=== PATIENT | female | born 1990 | race Two or more races ===

== ENCOUNTER 2017-07-13 06:54 | Emergency (ER) | payer MEDICAID ==
[~2017-07-13] VITALS: Ht 160 cm; Wt 78.0 kg
[~2017-07-13 06:54] MED LIST: NKM; RANITIDINE HCL150 MG PO; ZANTAC150 MG ORAL
[2017-07-13] MEDS ORDERED: IBUPROFEN600 MG ORAL (07:39)
--- NOTE | 2017-07-13 07:40 | Emergency Room Report ---
History of Present Illness General Chief Complaint: Sore Throat Present Illness HPI [id number] female with hypertension presenting with sore throat for 2 days. Patient reports sore throat worse with eating solid foods. Patient has still been able to eat solids and liquids. Patient denies any fever chills change in voice shortness of breath. Patient reports slight runny nose. Sick contacts include 2 kids with sore throat. Allergies: Coded Allergies: No Known Allergies (Unverified , 09/18/12) Patient History Past Medical History: HTN Past Surgical History: none Pertinent Family History: none Last Menstrual Period: 06/10/17 Now: No Nursing Documentation-PMH Hx Cardiac Problems: No Hx Hypertension: Yes Hx Asthma: No Hx Diabetes: No Hx Gastrointestinal Problems: Yes - GASTRITIS Review of Systems ENT: Reports: throat pain All Other Systems: negative except mentioned in HPI Physical Exam Vital Signs Date Time Temp Pulse Resp B/P Pulse Ox O2 Delivery O2 Flow Rate FiO2 07/13/17 07:12 97.9 83 145/85 95 Room Air Sp02 EP Interpretation: reviewed, normal General Appearance: normal inspection, well appearing, no apparent distress, alert, GCS 15, non-toxic Head: normocephalic, atraumatic Eyes: bilateral eye EOMI, bilateral eye PERRL, bilateral eye normal inspection ENT: moist mucus membranes, other - Bilateral mild tonsillar erythema. No exudates. No uvula enlargement or deviation. No signs of [employer]. Neck: normal inspection, full range of motion, supple, no bony tend Respiratory: normal inspection, lungs clear, normal breath sounds, no respiratory distress, no retraction, no wheezing, speaking full sentences, chest symmetrical Cardiovascular #1: normal inspection, regular rate, rhythm, normal capillary refill Gastrointestinal: normal inspection, non tender, soft, non-distended, no guarding Musculoskeletal: normal inspection, back normal, normal range of motion, non- tender Neurologic: normal inspection, alert, oriented x3, responsive, motor strength/ tone normal, sensory intact, normal gait, speech normal Psychiatric: normal inspection, judgement/insight normal, memory normal Skin: normal inspection, normal color, no rash, warm/dry, well hydrated, normal turgor Medical Decision Making Diagnostic Impression: Primary Impression: Viral pharyngitis ER Course Yo M F with sore throat for * days DDX: viral vs. infectious mononucleosis vs. bacterial pharyngitis vs. allergies Other serious causes such as [employer] / RPA / deep space neck infection history/physical most consistent with viral pharyngitis Plan: Motrin, decadron, supportive care. Abx not indicated at this time ER course: Patient remains stable in ED. Pt states improvement of pain with motrin. *Decadron given to patient. Disposition: Patient will be discharged to home. Patient will follow up with primary care doctor within 5 days. Strict return precautions discussed with patient such as worsening throat pain/swelling, dysphagia, high fever or chills, shortness of breath, abdominal pain, which may indicate severe illness. Patient verbalized understanding and agreed with plan. 27 F with sore throat for 2 days DDX: viral vs. infectious mononucleosis vs. bacterial pharyngitis vs. allergies Other serious causes such as [employer] / RPA / deep space neck infection history/physical most consistent with viral pharyngitis Plan: Motrin, Abx not indicated at this time ER course: Patient remains stable in ED. Pt states improvement of pain with motrin. Disposition: Patient will be discharged to home. Patient will follow up with primary care doctor within 5 days. Strict return precautions discussed with patient such as worsening throat pain/swelling, dysphagia, high fever or chills, shortness of breath, abdominal pain, which may indicate severe illness. Patient verbalized understanding and agreed with plan. Last Vital Signs Date Time Temp Pulse Resp B/P Pulse Ox O2 Delivery O2 Flow Rate FiO2 07/13/17 07:12 97.9 83 145/85 95 Room Air Disposition: HOME, SELF-CARE Condition: Improved Scripts Ibuprofen* (MOTRIN*) 600 Mg Tablet 600 MG ORAL Q8H Y for For Pain, #30 TAB 0 Refills Prov: Tomás Ramirez M.D. 07/13/17 Referrals: [facility],REFERRING (PCP) Tomás Ramirez M.D. Jul 13, 2017 07:40
[2017-07-13 07:51] VITALS: BP 145/85
[2017-07-13 08:02] VITALS: BP 141/78
== END 2017-07-13 08:04 | disposition home or self-care (01) ==
LOC: EMR 07:35
DX: J02.9 Acute pharyngitis, unspecified (principal); I10 Essential (primary) hypertension
CPT/HCPCS: 99283

== ENCOUNTER 2017-11-18 09:27 | Inpatient (IN) | payer MEDICAID ==
[2017-11-18] VITALS (7 sets, daily range): BP systolic 110–134; BP diastolic 66–85
[~2017-11-18] VITALS: Ht 162.6 cm; Wt 81.6 kg
[~2017-11-18 09:27] MED LIST changes: +IBUPROFEN600 MG ORAL
[2017-11-18 10:17] LABS: MEAN CORPUSCULAR HEMOGLOBIN 27.8 PG (27.0-31.0); MEAN CORPUSCULAR VOLUME 87 FL (80-99); MEAN PLATELET VOLUME 6.3 FL (6.5-10.1); PLATELET COUNT 210 K/UL (150-450); RED BLOOD COUNT 5.36 M/UL (4.20-5.40); RED CELL DISTRIBUTION WIDTH 11.9 % (11.6-14.8); WHITE BLOOD COUNT 9.8 K/UL (4.8-10.8)
[2017-11-18 10:23] LABS: CALCIUM 7.9 MG/DL (8.5-10.1)
[2017-11-18 10:27] LABS: APPEARANCE,URINE CLEAR; KETONES,URINE NEGATIVE (NEGATIVE); LEUKOCYTE ESTERASE ,URINE NEGATIVE (NEGATIVE); NITRITE,URINE NEGATIVE (NEGATIVE); PH,URINE 5 (4.5-8.0); PROTEIN,URINE NEGATIVE (NEGATIVE); UROBILINOGEN,URINE NORMAL MG/DL (0.0-1.0)
[2017-11-18 10:31] LABS: ALANINE AMINOTRANSFERASE 23 U/L (12-78); ALBUMIN/GLOBULIN RATIO 0.9 (1.0-2.7); ANION GAP 9 mmol/L (5-15); ASPARTATE AMINO TRANSFERASE 15 U/L (15-37); CARBON DIOXIDE 25 MMOL/L (21-32); CHLORIDE 104 MMOL/L (98-107); CREATININE 0.8 MG/DL (0.55-1.30); GLOMERULAR FILTRATION RATE > 60 mL/min (>60); LIPASE 94 U/L (73-393); POTASSIUM 3.7 MMOL/L (3.5-5.1); SODIUM 138 MMOL/L (136-145); TOTAL PROTEIN 8.5 G/DL (6.4-8.2)
[2017-11-18 10:38] LABS: BACTERIA,URINE FEW /HPF; SQUAMOUS EPITHELIAL CELL,UR FEW /LPF (NONE/OCC); WBC,URINE 0-2 /HPF (0 - 2)
--- NOTE | 2017-11-18 10:38 | Emergency Room Report ---
History of Present Illness General Chief Complaint: Abdominal Pain Source: Patient Present Illness HPI 27-year-old female with no sig pmhx p/w nausea vomiting and diarrhea for 12 hours. Pt reports n/v, 10 episodes of nbnb vomiting, 10 episodes of watery non bloody diarrhea Patient states pain started after vomiting, localized to epigastric, non radiating, burning in nature, intermittent. No relieving or exacerbating factors. + Subjective chills No hx of abdominal surgeries. No hx of endoscopies/colonoscopies. No recent antibiotic use No dysuria or hematuria Allergies: Coded Allergies: No Known Allergies (Unverified , 09/18/12) Patient History Past Medical History: see triage record Past Surgical History: none Pertinent Family History: none Last Menstrual Period: 10/24/17 Now: No Reviewed Nursing Documentation: PMH: Agreed, PSxH: Agreed Nursing Documentation-PMH Hx Cardiac Problems: No Hx Hypertension: Yes Hx Asthma: No Hx Diabetes: No Hx Gastrointestinal Problems: Yes - GASTRITIS Review of Systems All Other Systems: negative except mentioned in HPI Physical Exam Vital Signs Date Time Temp Pulse Resp B/P (MAP) Pulse Ox O2 Delivery O2 Flow Rate FiO2 11/18/17 09:34 100.2 148 18 134/85 97 Room Air Sp02 EP Interpretation: reviewed, normal General Appearance: alert, GCS 15, non-toxic, mild distress Head: normocephalic, atraumatic Eyes: bilateral eye normal inspection, bilateral eye PERRL, bilateral eye EOMI ENT: normal ENT inspection, normal pharynx, normal voice, moist mucus membranes Neck: normal inspection, full range of motion, supple Respiratory: normal inspection, lungs clear, normal breath sounds, no respiratory distress, no retraction, no wheezing, speaking full sentences, chest symmetrical Cardiovascular #1: normal inspection, regular rate, rhythm, no edema, normal capillary refill Cardiovascular #2: 2+ radial (R), 2+ radial (L) Gastrointestinal: other - Epigastric tenderness, no guarding or rebound Musculoskeletal: normal inspection, back normal, normal range of motion, non- tender Neurologic: normal inspection, alert, oriented x3, responsive, motor strength/ tone normal, sensory intact, normal gait, speech normal Psychiatric: normal inspection, judgement/insight normal, memory normal Skin: normal inspection, normal color, no rash, warm/dry, well hydrated, normal turgor Medical Decision Making Diagnostic Impression: Primary Impression: Nausea vomiting and diarrhea Additional Impression: Tachycardia ER Course 27-year-old female with nausea vomiting diarrhea abdominal pain Differential Diagnosis: Gastritis, gastroenteritis, cholecystitis, appendicitis, UTI/pyelo At this time abdomen is soft nontender, not likely to have acute intra- abdominal surgical pathology, will hold CT for now. Plan: Basic labs, ua, ekg Pepcid, maalox, pain control, IVF ER course: Pt initially tachycardic, found to be febrile, fluids and Tylenol given Pain improved. however pt continues to be very tachycardic >120s total 3L given still febrile, motrin given ativan given for anxiety slight low TSH will admit to hospital Disposition: Patient is to be admitted to telemetry D/W hospitalist Dr Mckeon who is covering for Dr Owens Please note that this Emergency Department Report was dictated using [employer] technology software, occasionally this can lead to erroneous entry secondary to interpretation by the dictation equipment Rhythm Strip EP Interpretation: Yes Rate: 100 Rhythm: NSR, no PVCs, no ectopy Laboratory Tests Test 11/18/17 09:56 11/18/17 10:00 11/18/17 14:00 Urine Color Yellow Urine Appearance Clear Urine pH 5 (4.5-8.0) Urine Specific [place] 1.015 (1.005-1.035) Urine Protein Negative (NEGATIVE) Urine Glucose (UA) Negative (NEGATIVE) Urine Ketones Negative (NEGATIVE) Urine Occult Blood 3+ (NEGATIVE) H Urine Nitrite Negative (NEGATIVE) Urine Bilirubin Negative (NEGATIVE) Urine Urobilinogen Normal MG/DL (0.0-1.0) Urine Leukocyte Esterase Negative (NEGATIVE) Urine RBC 2-4 /HPF (0 - 2) H Urine WBC 0-2 /HPF (0 - 2) Urine Squamous Epithelial Cells Few /LPF (NONE/OCC) Urine Bacteria Few /HPF (NONE) Urine HCG, Qualitative Negative White Blood Count 9.8 K/UL (4.8-10.8) Red Blood Count 5.36 M/UL (4.20-5.40) Hemoglobin 14.9 G/DL (12.0-16.0) Hematocrit 46.7 % (37.0-47.0) Mean Corpuscular Volume 87 FL (80-99) Mean Corpuscular Hemoglobin 27.8 PG (27.0-31.0) Mean Corpuscular Hemoglobin Concent 32.0 G/DL (32.0-36.0) Red Cell Distribution Width 11.9 % (11.6-14.8) Platelet Count 210 K/UL (150-450) Mean Platelet Volume 6.3 FL (6.5-10.1) L Neutrophils (%) (Auto) % (45.0-75.0) Lymphocytes (%) (Auto) % (20.0-45.0) Monocytes (%) (Auto) % (1.0-10.0) Eosinophils (%) (Auto) % (0.0-3.0) Basophils (%) (Auto) % (0.0-2.0) Differential Total Cells Counted 100 Neutrophils % (Manual) 92 % (45-75) H Lymphocytes % (Manual) 3 % (20-45) L Monocytes % (Manual) 4 % (1-10) Eosinophils % (Manual) 1 % (0-3) Basophils % (Manual) 0 % (0-2) Band Neutrophils 0 % (0-8) Platelet Estimate Adequate Platelet Morphology Normal Red Blood Cell Morphology Normal Sodium Level 138 MMOL/L (136-145) Potassium Level 3.7 MMOL/L (3.5-5.1) Chloride Level 104 MMOL/L (98-107) Carbon Dioxide Level 25 MMOL/L (21-32) Anion Gap 9 mmol/L (5-15) Blood Urea Nitrogen 8 mg/dL (7-18) Creatinine 0.8 MG/DL (0.55-1.30) Estimate Glomerular Filtration Rate > 60 mL/min (>60) Glucose Level 148 MG/DL (74-106) H Calcium Level 7.9 MG/DL (8.5-10.1) L Total Bilirubin 0.4 MG/DL (0.2-1.0) Aspartate Amino Transferase (AST) 15 U/L (15-37) Alanine Aminotransferase (ALT) 23 U/L (12-78) Alkaline Phosphatase 88 U/L (46-116) Total Protein 8.5 G/DL (6.4-8.2) H Albumin 4.0 G/DL (3.4-5.0) Globulin 4.5 g/dL Albumin/Globulin Ratio 0.9 (1.0-2.7) L Lipase 94 U/L (73-393) Thyroid Stimulating Hormone (TSH) 0.206 uiU/mL (0.358-3.740) Last Vital Signs Date Time Temp Pulse Resp B/P (MAP) Pulse Ox O2 Delivery O2 Flow Rate FiO2 11/18/17 10:15 101.8 11/18/17 09:34 148 18 134/85 97 Room Air Disposition: ADMITTED INPATIENT Condition: Serious Referrals: [facility],REFERRING (PCP) Tomás Ramirez M.D. Nov 18, 2017 10:38
[2017-11-18] MEDS ORDERED: Acetaminophen 500mg (ES) tab ORAL ONE (10:45)
[2017-11-18 10:46] LABS: BAND NEUTROPHILS % (MANUAL) 0 % (0-8); BASOPHILS % (MANUAL) 0 % (0-2); EOSINOPHILS % (MANUAL) 1 % (0-3); LYMPHOCYTES % (MANUAL) 3 % (20-45); NEUTROPHILS % (MANUAL) 92 % (45-75); PLATELET ESTIMATE ADEQUATE; PLATELET MORPHOLOGY NORMAL; TOTAL CELLS COUNTED 100
[2017-11-18] MEDS ORDERED: LORazepam Inj 2mg/ml 1ml IV ONE (14:45)
--- NOTE | 2017-11-18 17:27 | GI Initial Consult Note ---
History of Present Illness General Date patient seen: Nov 18, 2017 Time patient seen: 17:19 Reason for Hospitalization: Abdominal Pain Reason for Consultation: N/V Present Illness HPI 27-year-old female with no sig pmhx p/w nausea vomiting and diarrhea for 12 hours. Pt reports n/v, 10 episodes of nbnb vomiting, 10 episodes of watery non bloody diarrhea Patient states pain started after vomiting, localized to epigastric, non radiating, burning in nature, intermittent. No relieving or exacerbating factors. + Subjective chills GI consulted for N/V. HPI as noted above. Pt seen on floor, awake A&Ox4 NAD with no active s/sx of N/V/D. Last episode of emesis at 9am this morning, denies hematemesis or coffee grounds. Denies any recent travels. Denies any ETOH, tobacco, or drug use. Denies any changes in recent dietary changes. Epigastric tenderness. No leukocytosis. Low grade fever. No hx of abdominal surgeries. No hx of endoscopies/colonoscopies. No recent antibiotic use No dysuria or hematuria Home Meds Active Scripts Ibuprofen* (MOTRIN*) 600 Mg Tablet, 600 MG ORAL Q8H Y for For Pain, #30 TAB 0 Refills Prov:Tomás Ramirez M.D. 07/13/17 Ranitidine Hcl* (ZANTAC*) 150 Mg Tablet, 150 MG ORAL TWICE A DAY, #60 TAB Prov:DAHIANA OSL P.A. 06/23/13 Reported Medications No Known Medications* (NKM - No Known Medications*) ., 0 . 02/14/13 Med list reviewed/reconciled: Yes Allergies: Coded Allergies: No Known Allergies (Unverified , 09/18/12) Patient History History Provided By: Patient, Medical Record PMH Narrative Past Medical History: see triage record Past Surgical History: none Pertinent Family History: none Last Menstrual Period: 10/24/17 Now: No Reviewed Nursing Documentation: PMH: Agreed, PSxH: Agreed Nursing Documentation-PMH Hx Cardiac Problems: No Hx Hypertension: Yes Hx Asthma: No Hx Diabetes: No Hx Gastrointestinal Problems: Yes - GASTRITIS Social History: Denies: smoking, alcohol use, drug use, other Review of Systems All Other Systems: negative except mentioned in HPI Physical Exam Vital Signs Date Time Temp Pulse Resp B/P (MAP) Pulse Ox O2 Delivery O2 Flow Rate FiO2 11/18/17 09:34 100.2 148 18 134/85 97 Room Air Sp02 EP Interpretation: reviewed, normal Labs Laboratory Tests Test 11/18/17 09:56 11/18/17 10:00 11/18/17 14:00 Urine Color Yellow Urine Appearance Clear Urine pH 5 (4.5-8.0) Urine Specific [place] 1.015 (1.005-1.035) Urine Protein Negative (NEGATIVE) Urine Glucose (UA) Negative (NEGATIVE) Urine Ketones Negative (NEGATIVE) Urine Occult Blood 3+ (NEGATIVE) H Urine Nitrite Negative (NEGATIVE) Urine Bilirubin Negative (NEGATIVE) Urine Urobilinogen Normal MG/DL (0.0-1.0) Urine Leukocyte Esterase Negative (NEGATIVE) Urine RBC 2-4 /HPF (0 - 2) H Urine WBC 0-2 /HPF (0 - 2) Urine Squamous Epithelial Cells Few /LPF (NONE/OCC) Urine Bacteria Few /HPF (NONE) Urine HCG, Qualitative Negative White Blood Count 9.8 K/UL (4.8-10.8) Red Blood Count 5.36 M/UL (4.20-5.40) Hemoglobin 14.9 G/DL (12.0-16.0) Hematocrit 46.7 % (37.0-47.0) Mean Corpuscular Volume 87 FL (80-99) Mean Corpuscular Hemoglobin 27.8 PG (27.0-31.0) Mean Corpuscular Hemoglobin Concent 32.0 G/DL (32.0-36.0) Red Cell Distribution Width 11.9 % (11.6-14.8) Platelet Count 210 K/UL (150-450) Mean Platelet Volume 6.3 FL (6.5-10.1) L Neutrophils (%) (Auto) % (45.0-75.0) Lymphocytes (%) (Auto) % (20.0-45.0) Monocytes (%) (Auto) % (1.0-10.0) Eosinophils (%) (Auto) % (0.0-3.0) Basophils (%) (Auto) % (0.0-2.0) Differential Total Cells Counted 100 Neutrophils % (Manual) 92 % (45-75) H Lymphocytes % (Manual) 3 % (20-45) L Monocytes % (Manual) 4 % (1-10) Eosinophils % (Manual) 1 % (0-3) Basophils % (Manual) 0 % (0-2) Band Neutrophils 0 % (0-8) Platelet Estimate Adequate Platelet Morphology Normal Red Blood Cell Morphology Normal Sodium Level 138 MMOL/L (136-145) Potassium Level 3.7 MMOL/L (3.5-5.1) Chloride Level 104 MMOL/L (98-107) Carbon Dioxide Level 25 MMOL/L (21-32) Anion Gap 9 mmol/L (5-15) Blood Urea Nitrogen 8 mg/dL (7-18) Creatinine 0.8 MG/DL (0.55-1.30) Estimat Glomerular Filtration Rate > 60 mL/min (>60) Glucose Level 148 MG/DL (74-106) H Calcium Level 7.9 MG/DL (8.5-10.1) L Total Bilirubin 0.4 MG/DL (0.2-1.0) Aspartate Amino Transf (AST/SGOT) 15 U/L (15-37) Alanine Aminotransferase (ALT/SGPT) 23 U/L (12-78) Alkaline Phosphatase 88 U/L (46-116) Total Protein 8.5 G/DL (6.4-8.2) H Albumin 4.0 G/DL (3.4-5.0) Globulin 4.5 g/dL Albumin/Globulin Ratio 0.9 (1.0-2.7) L Lipase 94 U/L (73-393) Thyroid Stimulating Hormone (TSH) 0.206 uiU/mL (0.358-3.740) General Appearance: well appearing, no apparent distress, alert, obese Head: normocephalic EENT: PERRL/EOMI, normal ENT inspection Neck: supple Respiratory: normal breath sounds, no respiratory distress Cardiovascular: normal rate Gastrointestinal: normal inspection, non tender, soft, normal bowel sounds, non -distended, other - epigastric tenderness Rectal: deferred Genitourinary: no CVA tenderness Musculoskeletal: normal inspection, back normal Neurologic: normal inspection, alert, oriented x3, responsive Psychiatric: normal inspection, judgement/insight normal, memory normal Skin: normal inspection, normal color, no rash, warm/dry, palpation normal, well hydrated Lymphatic: normal inspection, no adenopathy GI: Plan Problems: (1) Dehydration (2) Epigastric pain (3) Gastroenteritis (4) Nausea vomiting and diarrhea (5) Tachycardia Plan lipase WNL symptomatic treatment at this time zofran prn, reglan for persistent vomiting pain mgmt, tylenol prn IV/PO hydration + electrolyte correction ppi CLD, adv as tolerated fu utox fu labs Discussed with Dr. Butts. Thank you for this patient referral, we will follow. Nara Padilla N.P. Nov 18, 2017 17:26
--- NOTE | 2017-11-18 18:50 | Consultation ---
Consult Note Consult Note Cardiology for Dr Mitchell Full consult dictated # [id number] Assessment: Sinus tachycardia due to intravascular vol depletion due to vomiting , diarrhea - ? gastroenteritis Rec: Continuous iv rehydration w/ NS. K supplementation as needed. Will check ekg but doubt primary cardiac pathology. GI evaluation noted. Will follow. CHRISTINA ESPINOZA Nov 18, 2017 18:50
[2017-11-18] MEDS: NS w/KCl 20mEq 1,000 ML IV SCH (23:05)
--- NOTE | 2017-11-18 23:15 | Consultation ---
DATE OF CONSULTATION: 11/18/2017 CARDIOLOGY CONSULTATION CONSULTING PHYSICIAN: Jennifer Edwards M.D. REQUESTING PHYSICIAN: Brayan Owens M.D. REASON FOR CONSULTATION: Sinus tachycardia. HISTORY OF PRESENT ILLNESS: The patient is a 27-year-old woman with history of borderline hypertension, who presents with nausea, vomiting, and diarrhea, which began on 11/17/2017 at approximately 9 p.m. She reports having epigastric pain and nausea followed by vomiting of food and fluids. There was no coffee-ground emesis or hematemesis. She also had watery diarrhea about 15 or more stools over the past 12 hours. She presented to the emergency room and was noted to have pulse rate of 148 beats per minute, blood pressure 134/85, and temperature 100.2 degrees. She is admitted for further treatment. Cardiology evaluation was requested for treatment of the patient's tachycardia. PAST MEDICAL HISTORY: As noted above. MEDICATIONS: At home, none. ALLERGIES: No known drug allergies. SOCIAL HISTORY: She is a nonsmoker, does not drink alcohol or use any drugs. She lives at home with her and two children. She reports that her two children and sister had "stomach flu" three days ago. PHYSICAL EXAMINATION: VITAL SIGNS: Blood pressure 110/66, pulse 122 and regular, respirations 20, and temperature 100.4. GENERAL: Alert, well-developed woman in no acute distress. HEENT: Normocephalic, atraumatic. Pupils equal, round, and reactive to light. Sclerae anicteric. Oral mucosa moist. NECK: Supple. There is no jugular venous distention. No carotid bruits. No thyromegaly. LUNGS: Clear to auscultation bilaterally. HEART: Tachycardic. Regular S1 and S2 with no murmurs or S3. ABDOMEN: Soft, nontender. Decreased bowel sounds. No palpable mass. EXTREMITIES: No cyanosis, clubbing, or edema. A 2+ dorsalis pedis, posterior tibial pulses bilaterally. SKIN: No rashes or lesions. NEUROLOGIC: No focal motor deficits. LABORATORY AND DIAGNOSTIC DATA: Hemoglobin 14.9, white blood count 9800, and platelets 210,000. Sodium 138, potassium 3.7, chloride 104, bicarbonate 25, BUN 8, and creatinine 0.8. TSH 0.20. Chest x-ray shows normal cardiac silhouette, normal pulmonary vasculature. No infiltrates or effusions. Telemetry shows sinus rate 140s, now in the 120s. ASSESSMENT AND RECOMMENDATION: The patient is a 27-year-old woman with no previous history of cardiac disease, who presents with one-day history of epigastric discomfort, nausea, vomiting, and diarrhea. In this setting, she is noted to have significant tachycardia, sinus tachycardia which appears likely due to severe intravascular volume depletion. She has received intravenous fluid boluses. I will start continuous intravenous normal saline hydration with potassium supplementation as needed. Her dehydration is likely due to the persistent nausea, vomiting, and diarrhea. She may have viral gastroenteritis given the history of family members with similar symptoms. I will obtain an EKG. She is being evaluated by gastroenterology. Further cardiac workup will be undertaken depending on her clinical course. Thank you for allowing me to participate in her care. Jennifer Brian M.D. DR: JUAN RAMON JOB#: [id number] CC:
[2017-11-19] VITALS: BP 121/70
[2017-11-19 04:00] VITALS: BP 131/72
[2017-11-19] MEDS: NS w/KCl 20mEq 1,000 ML IV SCH ×3 (04:25→15:30)
[2017-11-19 08:00] VITALS: BP 137/84
--- NOTE | 2017-11-19 08:39 | Cardiology Progress Note ---
Assessment/Plan Status: stable, progressing Status Narrative Pt adm w/ acute onset n/v, diarrhea - c/w gastroenteritis, ? viral , ? bacterial She has sinus tachycardia, to 140s on adm, now dec to appx 100 bpm. Her tachycardia was likely due to dehydration and has improved w/ IV fluids Assessment/Plan Continue iv fluids, as pt w/ continued diarrhea. Check lytes, renal function today GI followup. Subjective ROS Limited/Unobtainable: No Subjective Cardiology for Dr. Mitchell Pt's n/v have resolved. However, she had watery diarrhea this am. No abd pain Objective Last 24 Hour Vital Signs Date Time Temp Pulse Resp B/P (MAP) Pulse Ox O2 Delivery O2 Flow Rate FiO2 11/19/17 04:00 98 11/19/17 04:00 98.1 95 20 131/72 100 Room Air 11/19/17 00:00 98.2 113 20 121/70 97 Room Air 11/19/17 00:00 99 11/18/17 20:00 113 11/18/17 19:50 99.8 98 15 130/78 100 Room Air 11/18/17 19:50 100.6 115 20 124/69 98 Room Air 11/18/17 19:15 99.8 98 15 130/78 100 Room Air 11/18/17 18:52 100.0 111 14 133/74 100 Room Air 11/18/17 16:12 100.4 122 20 110/66 100 Room Air 11/18/17 14:52 100.4 11/18/17 14:00 100.3 124 14 115/71 98 Room Air 11/18/17 12:19 100.1 127 18 111/70 98 Room Air 11/18/17 11:34 100.3 11/18/17 10:15 101.8 11/18/17 09:34 100.2 148 18 134/85 97 Room Air 11/18/17 09:34 100.2 148 18 134/85 97 Room Air General Appearance: WD/WN, no apparent distress, alert EENT: PERRL/EOMI Neck: no JVD Rhythm: ST Cardiovascular: normal peripheral pulses, regular rhythm, no gallop/murmur, tachycardia Respiratory/Chest: lungs clear Abdomen: non tender, soft, no mass Extremities: no swelling Intake and Output 11/18/17 11/19/17 19:00 07:00 Intake Total 3000 ml 200 ml Balance 3000 ml 200 ml Intake Oral 0 ml 200 ml IV Total 3000 ml Laboratory Tests Test 11/18/17 09:56 11/18/17 10:00 11/18/17 14:00 Urine Color Yellow Urine Appearance Clear Urine pH 5 (4.5-8.0) Urine Specific [place] 1.015 (1.005-1.035) Urine Protein Negative (NEGATIVE) Urine Glucose (UA) Negative (NEGATIVE) Urine Ketones Negative (NEGATIVE) Urine Occult Blood 3+ (NEGATIVE) H Urine Nitrite Negative (NEGATIVE) Urine Bilirubin Negative (NEGATIVE) Urine Urobilinogen Normal MG/DL (0.0-1.0) Urine Leukocyte Esterase Negative (NEGATIVE) Urine RBC 2-4 /HPF (0 - 2) H Urine WBC 0-2 /HPF (0 - 2) Urine Squamous Epithelial Cells Few /LPF (NONE/OCC) Urine Bacteria Few /HPF (NONE) Urine HCG, Qualitative Negative White Blood Count 9.8 K/UL (4.8-10.8) Red Blood Count 5.36 M/UL (4.20-5.40) Hemoglobin 14.9 G/DL (12.0-16.0) Hematocrit 46.7 % (37.0-47.0) Mean Corpuscular Volume 87 FL (80-99) Mean Corpuscular Hemoglobin 27.8 PG (27.0-31.0) Mean Corpuscular Hemoglobin Concent 32.0 G/DL (32.0-36.0) Red Cell Distribution Width 11.9 % (11.6-14.8) Platelet Count 210 K/UL (150-450) Mean Platelet Volume 6.3 FL (6.5-10.1) L Neutrophils (%) (Auto) % (45.0-75.0) Lymphocytes (%) (Auto) % (20.0-45.0) Monocytes (%) (Auto) % (1.0-10.0) Eosinophils (%) (Auto) % (0.0-3.0) Basophils (%) (Auto) % (0.0-2.0) Differential Total Cells Counted 100 Neutrophils % (Manual) 92 % (45-75) H Lymphocytes % (Manual) 3 % (20-45) L Monocytes % (Manual) 4 % (1-10) Eosinophils % (Manual) 1 % (0-3) Basophils % (Manual) 0 % (0-2) Band Neutrophils 0 % (0-8) Platelet Estimate Adequate Platelet Morphology Normal Red Blood Cell Morphology Normal Sodium Level 138 MMOL/L (136-145) Potassium Level 3.7 MMOL/L (3.5-5.1) Chloride Level 104 MMOL/L (98-107) Carbon Dioxide Level 25 MMOL/L (21-32) Anion Gap 9 mmol/L (5-15) Blood Urea Nitrogen 8 mg/dL (7-18) Creatinine 0.8 MG/DL (0.55-1.30) Estimat Glomerular Filtration Rate > 60 mL/min (>60) Glucose Level 148 MG/DL (74-106) H Calcium Level 7.9 MG/DL (8.5-10.1) L Total Bilirubin 0.4 MG/DL (0.2-1.0) Aspartate Amino Transf (AST/SGOT) 15 U/L (15-37) Alanine Aminotransferase (ALT/SGPT) 23 U/L (12-78) Alkaline Phosphatase 88 U/L (46-116) Total Protein 8.5 G/DL (6.4-8.2) H Albumin 4.0 G/DL (3.4-5.0) Globulin 4.5 g/dL Albumin/Globulin Ratio 0.9 (1.0-2.7) L Lipase 94 U/L (73-393) Thyroid Stimulating Hormone (TSH) 0.206 uiU/mL (0.358-3.740) CHRISTINA ESPINOZA Nov 19, 2017 08:39
[2017-11-19 08:45] LABS: BASOPHILS % (AUTO) 0.4 % (0.0-2.0); EOSINOPHILS % (AUTO) 0.4 % (0.0-3.0); LYMPHOCYTES % (AUTO) 19.2 % (20.0-45.0); MEAN CORPUSCULAR HEMOGLOBIN 28.4 PG (27.0-31.0); MEAN CORPUSCULAR HGB CONC 32.5 G/DL (32.0-36.0); MEAN CORPUSCULAR VOLUME 87 FL (80-99); MEAN PLATELET VOLUME 6.6 FL (6.5-10.1); MONOCYTES % (AUTO) 7.9 % (1.0-10.0); NEUTROPHILS % (AUTO) 72.2 % (45.0-75.0); PLATELET COUNT 153 K/UL (150-450); RED BLOOD COUNT 4.07 M/UL (4.20-5.40); WHITE BLOOD COUNT 6.3 K/UL (4.8-10.8)
--- NOTE | 2017-11-19 08:45 | History and Physical Report ---
DATE OF ADMISSION: 11/18/2017 NOTE: POOR AUDIO INTERNAL MEDICINE HISTORY AND PHYSICAL IDENTIFICATION DATA: The patient is a pleasant 27-year-old female with past medical history significant for hypokalemia. The patient presents at this time with dehydration, gastroenteritis, nausea and vomiting. Cardiology Service as well as GI Service has been consulted to evaluate nausea and vomiting. The patient is without any history of antibiotic use. No recent hematuria. No past significant medical history besides diarrhea and vomiting that is acute onset. Continue to monitor with consultants. PAST MEDICAL HISTORY: None reported as significant. ALLERGIES: No known drug allergies. MEDICATIONS: . REVIEW OF SYSTEMS: Negative besides nausea and vomiting. PHYSICAL EXAMINATION: VITAL SIGNS: Reviewed. GENERAL: No acute distress. PULMONARY: Decreased breath sounds. CARDIOVASCULAR: Regular rate. No S3 or S4. ABDOMEN: Soft, nontender, and nondistended. EXTREMITIES: A 1+ edema. LABORATORY DATA: Unremarkable CBC. Glucose 148. Calcium 7.9. TSH 0.206. ASSESSMENT AND RECOMMENDATIONS: 1. Nausea and vomiting, potentially secondary to gastroenteritis, has been seen by GI team. Continue fluids. The patient is NPO. 2. . Continue proton pump inhibitor. 3. Nausea and vomiting. Continue Zofran on a p.r.n. basis . 4. Pancreatitis. 5. Tachycardia, likely secondary to dehydration. Closely monitor. 6. Epigastric pain. 7. I will follow up on labs, urine toxicology. I appreciate the individual pension consultant care. Moi Mckeon M.D. DR: SHELTON JOB#: [id number] CC:
[2017-11-19] MEDS ORDERED: Heparin 5000 units/ml inj SUBQ SCH (09:00)
[2017-11-19] MEDS ORDERED: Pantoprazole Inj IVP SCH (09:00)
[2017-11-19 09:02] LABS: ALANINE AMINOTRANSFERASE 23 U/L (12-78); ALBUMIN/GLOBULIN RATIO 0.8 (1.0-2.7); ANION GAP 8 mmol/L (5-15); ASPARTATE AMINO TRANSFERASE 14 U/L (15-37); CALCIUM 6.9 MG/DL (8.5-10.1); CARBON DIOXIDE 25 MMOL/L (21-32); CHLORIDE 108 MMOL/L (98-107); CREATININE 0.6 MG/DL (0.55-1.30); GLOMERULAR FILTRATION RATE > 60 mL/min (>60); POTASSIUM 3.1 MMOL/L (3.5-5.1); SODIUM 140 MMOL/L (136-145); TOTAL PROTEIN 6.9 G/DL (6.4-8.2)
[2017-11-19] MEDS ORDERED: Loperamide 2mg cap ORAL ONE (10:30)
--- NOTE | 2017-11-19 10:37 | GI Progress Note ---
Assessment/Plan Problems: (1) Nausea vomiting and diarrhea ICD Codes: R11.2 - Nausea with vomiting, unspecified; R19.7 - Diarrhea, unspecified SNOMED: 4438871 (2) Nausea alone ICD Codes: R11.0 - Nausea SNOMED: 814686354 (3) Gastroenteritis ICD Codes: K52.9 - Noninfective gastroenteritis and colitis, unspecified SNOMED: 60212816 (4) Epigastric pain ICD Codes: R10.13 - Epigastric pain SNOMED: 86543756 (5) Dehydration ICD Codes: E86.0 - Dehydration SNOMED: 16416755 Status: stable Status Narrative Discussed with Dr. Butts. Assessment/Plan lipase WNL VSS okay for DC per GI standpoint if tolerates lunch symptomatic treatment at this time advance to regular diet imodium prn zofran prn, reglan for persistent vomiting pain mgmt, tylenol prn IV/PO hydration + electrolyte correction ppi fu utox fu labs Subjective Gastrointestinal/Abdominal: Reports: diarrhea Objective Last 24 Hour Vital Signs Date Time Temp Pulse Resp B/P (MAP) Pulse Ox O2 Delivery O2 Flow Rate FiO2 11/19/17 04:00 98 11/19/17 04:00 98.1 95 20 131/72 100 Room Air 11/19/17 00:00 98.2 113 20 121/70 97 Room Air 11/19/17 00:00 99 11/18/17 20:00 113 11/18/17 19:50 99.8 98 15 130/78 100 Room Air 11/18/17 19:50 100.6 115 20 124/69 98 Room Air 11/18/17 19:15 99.8 98 15 130/78 100 Room Air 11/18/17 18:52 100.0 111 14 133/74 100 Room Air 11/18/17 16:12 100.4 122 20 110/66 100 Room Air 11/18/17 14:52 100.4 11/18/17 14:00 100.3 124 14 115/71 98 Room Air 11/18/17 12:19 100.1 127 18 111/70 98 Room Air 11/18/17 11:34 100.3 Intake and Output 11/18/17 11/19/17 19:00 07:00 Intake Total 3000 ml 200 ml Balance 3000 ml 200 ml Intake Oral 0 ml 200 ml IV Total 3000 ml Laboratory Tests Test 11/18/17 14:00 11/19/17 07:55 Thyroid Stimulating Hormone (TSH) 0.206 uiU/mL (0.358-3.740) White Blood Count 6.3 K/UL (4.8-10.8) Red Blood Count 4.07 M/UL (4.20-5.40) L Hemoglobin 11.6 G/DL (12.0-16.0) L Hematocrit 35.6 % (37.0-47.0) L Mean Corpuscular Volume 87 FL (80-99) Mean Corpuscular Hemoglobin 28.4 PG (27.0-31.0) Mean Corpuscular Hemoglobin Concent 32.5 G/DL (32.0-36.0) Red Cell Distribution Width 12.0 % (11.6-14.8) Platelet Count 153 K/UL (150-450) Mean Platelet Volume 6.6 FL (6.5-10.1) Neutrophils (%) (Auto) 72.2 % (45.0-75.0) Lymphocytes (%) (Auto) 19.2 % (20.0-45.0) L Monocytes (%) (Auto) 7.9 % (1.0-10.0) Eosinophils (%) (Auto) 0.4 % (0.0-3.0) Basophils (%) (Auto) 0.4 % (0.0-2.0) Sodium Level 140 MMOL/L (136-145) Potassium Level 3.1 MMOL/L (3.5-5.1) L Chloride Level 108 MMOL/L (98-107) H Carbon Dioxide Level 25 MMOL/L (21-32) Anion Gap 8 mmol/L (5-15) Blood Urea Nitrogen 4 mg/dL (7-18) L Creatinine 0.6 MG/DL (0.55-1.30) Estimat Glomerular Filtration Rate > 60 mL/min (>60) Glucose Level 125 MG/DL (74-106) H Calcium Level 6.9 MG/DL (8.5-10.1) L Total Bilirubin 0.3 MG/DL (0.2-1.0) Aspartate Amino Transf (AST/SGOT) 14 U/L (15-37) L Alanine Aminotransferase (ALT/SGPT) 23 U/L (12-78) Alkaline Phosphatase 64 U/L (46-116) Total Protein 6.9 G/DL (6.4-8.2) Albumin 3.1 G/DL (3.4-5.0) L Globulin 3.8 g/dL Albumin/Globulin Ratio 0.8 (1.0-2.7) L Free Thyroxine 1.04 NG/DL (0.76-1.46) Height (Feet): 5 Height (Inches): 4.00 Weight (Pounds): 180 General Appearance: WD/WN, no apparent distress, alert Cardiovascular: normal rate Respiratory/Chest: normal breath sounds, no respiratory distress Abdominal Exam: normal bowel sounds, non tender, soft Extremities: normal range of motion, non-tender Nara Paidlla N.P. Nov 19, 2017 10:37
[2017-11-19 12:00] VITALS: BP 126/92
--- NOTE | 2017-11-19 12:52 | Cardiology Report ---
APPROVED REPORT EKG Measurement Heart [id number] [id number] Sinus tachycardia Otherwise normal ECG
[2017-11-19] MEDS ORDERED: Flu Vaccine Quadrivalent 0.5ml IM ONE (14:30)
--- NOTE | 2017-11-20 10:42 | Discharge Summary ---
Discharge Summary Hospital Course Date of Admission Nov 18, 2017 at 15:27 Date of Discharge Nov 19, 2017 at 16:20 Admitting Diagnosis abd pain/tachycardia/dehydration ADAL Evans is a 27 year old female who was admitted on Nov 18, 2017 at 15 :27 for Abdominal Pain, Tachycardia, Dehydration Hospital Course [id number] Discharge Discharge Disposition Patient left AMA Discharge Diagnoses: Lissette Finnegan NP Nov 20, 2017 10:42
--- NOTE | 2017-11-20 16:32 | Discharge Summary 2 SIG ---
DATE OF ADMISSION: 11/18/2017 DATE OF DISCHARGE: 11/19/2017 CONSULTANTS: 1. Enrique Butts M.D. 2. Jennifer Brian M.D. BRIEF HOSPITAL COURSE: The patient is a 27-year-old female with medical history significant for hypokalemia, presented with complaints of dehydration, nausea, and vomiting with diarrhea for 12 hours. She had 10 episodes of watery nonbloody diarrhea and 10 episodes of nonbloody nonbilious vomiting. She had epigastric pain, which is nonradiating, burning in nature, and intermittent with subjective chills. There was no history of prior abdominal surgery. No dysuria or hematuria. On evaluation at ED, she was febrile, temperature was 100.2 and was tachycardic. She was given IV hydration and was given Pepcid, Maalox, and Ativan for anxiety. EKG was in sinus. Workup showed no leukocytosis with stable hemoglobin and hematocrit. She was admitted to telemetry for nausea and vomiting. She underwent cardiac and GI evaluation. Lipase was within normal limits. She was given symptomatic treatment consisting of Zofran and Reglan. She was initially placed on clear liquid diet and was advanced as tolerated. Sinus tachycardia appeared to be due to severe intravascular volume depletion secondary to vomiting and diarrhea. She was given saline hydration with potassium supplementation. Full treatment was not carried out as the patient signed out against medical advice. DISPOSITION: The patient left AMA. FINAL DIAGNOSES: 1. Nausea and vomiting potentially secondary to acute gastroenteritis. 2. Tachycardia secondary to volume depletion and dehydration. 3. Epigastric pain. 4. Noncompliance as the patient signed out against medical advice. Moi Mckeon M.D. I have been assigned to dictate discharge summary on this account and I was not involved in the patient's management. Lissette Finnegan N.P. DR: LIS JOB#: [id number] CC:
== END 2017-11-19 16:20 | disposition left against medical advice (07) | DRG 249 ==
LOC: EMR 09:49 → 2E 15:27 → EDBEDREQ 19:09
DX: E86.0 Dehydration (principal); K52.9 Noninfective gastroenteritis and colitis, unspecified; R10.13 Epigastric pain; R11.2 Nausea with vomiting, unspecified; R00.0 Tachycardia, unspecified; Z91.19 Patient's noncompliance with other medical treatment and regimen
CPT/HCPCS: 36415; 80053; 81003; 81025; 83690; 84439; 84443; 85007; 85025; 90630; 93005; 99285; J2405

== ENCOUNTER 2019-03-17 03:09 | Emergency (ER) | payer MEDICAID ==
[~2019-03-17] VITALS: Ht 162.6 cm; Wt 83.9 kg
[~2019-03-17 03:09] MED LIST changes: +CEPHALEXIN500 MG ORAL; +PHENAZOPYRIDIN100 MG ORAL
--- NOTE | 2019-03-17 03:17 | NUR ---
ED Nurse Note: Pt arrived ED from home, c/o left of the second toe pain 8/10 for 2 days. Pt states that no injury was notied. Pt is A/OX 4. Vital signs stable at this time, waiting for orders.
--- NOTE | 2019-03-17 03:26 | Emergency Room Report ---
History of Present Illness General Chief Complaint: Lower Extremity Injury Source: Patient Present Illness HPI See a 28-year-old female with history of high blood pressure. She presents with chief complaint of left foot pain. There is no trauma. Pain been ongoing for last 2 days. Pain is to the base of the second toe and the pad. It radiates upward. She had previous toe fracture before in this foot. Pain is 7 out of 10. Worse with movement.. Allergies: Coded Allergies: No Known Allergies (Unverified , 09/18/12) Patient History Past Medical History: see triage record, old chart reviewed, HTN Past Surgical History: none Pertinent Family History: none Social History: Denies: smoking Last Menstrual Period: 01/10/2019 Now: No Immunizations: other Reviewed Nursing Documentation: PMH: Agreed; PSxH: Agreed Nursing Documentation-PMH Past Medical History: No History, Except For Hx Cardiac Problems: Yes Hx Hypertension: Yes Hx Asthma: No Hx Diabetes: No Hx Cancer: No Hx Gastrointestinal Problems: Yes - GASTRITIS Hx Neurological Problems: No Review of Systems Eye: Denies: eye pain, blurred vision ENT: Denies: ear pain, nose congestion, throat swelling Respiratory: Denies: cough, shortness of breath Cardiovascular: Denies: chest pain, palpitations Gastrointestinal: Denies: abdominal pain, diarrhea, nausea, vomiting Musculoskeletal: Reports: joint pain, muscle pain; Denies: back pain Skin: Denies: rash Neurological: Denies: headache, numbness Endocrine: Denies: increased thirst, increased urine Hematologic/Lymphatic: Denies: easy bruising All Other Systems: negative except mentioned in HPI Physical Exam Vital Signs Date Time Temp Pulse Resp B/P (MAP) Pulse Ox O2 Delivery O2 Flow Rate FiO2 03/17/19 03:12 98.6 90 16 161/100 99 Room Air vitals with high blood pressure Sp02 EP Interpretation: reviewed, normal General Appearance: well appearing, no apparent distress, alert, obese Head: normocephalic, atraumatic Eyes: bilateral eye PERRL, bilateral eye EOMI ENT: hearing grossly normal, normal pharynx Neck: full range of motion, supple, no meningismus Respiratory: chest non-tender, lungs clear, normal breath sounds Cardiovascular #1: regular rate, rhythm, no murmur Gastrointestinal: normal bowel sounds, non tender, no mass, no organomegaly, no bruit, non-distended Musculoskeletal: back normal, gait/station normal, normal range of motion, other - Left foot: Tenderness at the base after MTP joint of the second toe. No deformity. Pulses normal. Neurologic: alert, oriented x3 Psychiatric: mood/affect normal Skin: warm/dry Medical Decision Making Diagnostic Impression: Primary Impression: Foot pain, left ER Course Patient presents with left foot pain. No fracture or dislocation. No evidence of infection. We'll discharge home. Other X-Ray Diagnostic Results Other X-Ray Diagnostic Results : X-Ray ordered: X-ray left foot # of Views/Limited Vs Complete: 3 View Indication: Pain EP Interpretation: Yes Interpretation: no dislocation, no soft tissue swelling, no fractures Impression: No acute disease Electronically Signed by: Wiley Padilla MD Last Vital Signs Date Time Temp Pulse Resp B/P (MAP) Pulse Ox O2 Delivery O2 Flow Rate FiO2 03/17/19 03:12 98.6 90 16 161/100 99 Room Air Status: improved Disposition: HOME, SELF-CARE Condition: Stable Scripts Ibuprofen* (MOTRIN*) 600 Mg Tablet 600 MG ORAL THREE TIMES A DAY, #30 TAB 0 Refills Prov: Wiley Padilla MD 03/17/19 Patient Instructions: Foot Sprain Additional Instructions: Follow-up with your doctor in 7 days. Return if worse. Wiely Padilla MD Mar 17, 2019 03:26
--- NOTE | 2019-03-17 03:32 | NUR ---
ED Nurse Note: Pain meds given as ordered.
--- NOTE | 2019-03-17 03:35 | NUR ---
ED Nurse Note: X-ray done at beds side.
[2019-03-17] MEDS ORDERED: IBUPROFEN600 MG ORAL (03:50)
[2019-03-17 03:54] VITALS: BP 156/92
--- NOTE | 2019-03-17 03:54 | NUR ---
ER DISCHARGE NOTE: Patient is cleared to be discharged per Dr. Padilla. X-ray done, no fracture was found. Pain meds given as ordered. Crutches provided. Pt is aox4 on room air with stable vital signs. Pt was given dc and prescription instructions and was able to verbalize understanding. Pt's ID band removed. Pt is able to ambulate well with crutches and pt took all belongings.
--- NOTE | 2019-03-17 16:09 | Diagnostic Imaging Report ---
Indication: Pain in left foot for one day Technique: 3 views left foot Comparison: none Findings: No acute fractures. No dislocations. The joint spaces are preserved. There is mild hammertoe deformity of the second through fifth digits. Impression: No acute bony trauma
== END 2019-03-17 03:54 | disposition home or self-care (01) ==
LOC: EMR 03:30
DX: M25.572 Pain in left ankle and joints of left foot (principal); I10 Essential (primary) hypertension
CPT/HCPCS: 99283

== ENCOUNTER 2019-09-15 11:21 | Emergency (ER) | payer MEDICAID ==
[~2019-09-15] VITALS: Ht 162.6 cm; Wt 89.8 kg
[2019-09-15 11:36] VITALS: BP 150/91
--- NOTE | 2019-09-15 11:46 | NUR ---
ED Nurse Note: PT CAME IN DUE TO LEFT EAR HEARING LOSS AND FELT LIKE A LIQUID WOULD COMEOUT FROM HER EAR, BUT NO DRAINAGE AT THIS TIME. DENIES DIZZINESS.. AAO X4, AND AMBULATES WITH STEADY GAIT.
--- NOTE | 2019-09-15 12:42 | Emergency Room Report ---
History of Present Illness General Chief Complaint: Earache Source: Patient Present Illness HPI 29-year-old female presents to the emergency department complaining of 3 out of 10 severity pain x2 days. Patient reports she feels as though there is a lot of pressure buildup in it needs to be relieved or have liquid drained. Patient states she is attempted to clean her ears with Q-tips with no relief. Patient reports muffled hearing she states the pain is very deep she denies external ear tenderness. Patient reports chills but denies fevers. Patient denies cough , sore throat, neck pain or stiffness. Patient does report nasal congestion prior to her symptoms onset. Patient reports that she had reduction of her pain after taking Advil prior to arrival. Allergies: Coded Allergies: No Known Allergies (Unverified , 09/18/12) Patient History Past Medical History: see triage record Past Surgical History: none Last Menstrual Period: 09/10/2019 Reviewed Nursing Documentation: PMH: Agreed; PSxH: Agreed Nursing Documentation-PMH Past Medical History: No History, Except For Hx Cardiac Problems: Yes Hx Hypertension: Yes Hx Asthma: No Hx Diabetes: No Hx Cancer: No Hx Gastrointestinal Problems: Yes - GASTRITIS Hx Neurological Problems: No Review of Systems All Other Systems: negative except mentioned in HPI Physical Exam Vital Signs Date Time Temp Pulse Resp B/P (MAP) Pulse Ox O2 Delivery O2 Flow Rate FiO2 09/15/19 11:36 99.0 110 18 150/91 (110) 98 Room Air Sp02 EP Interpretation: reviewed, normal General Appearance: no apparent distress, alert, GCS 15, non-toxic Head: normocephalic, atraumatic Eyes: bilateral eye normal inspection, bilateral eye PERRL ENT: hearing grossly normal, normal pharynx, normal voice, uvula midline, moist mucus membranes, other - Left TM is erythematous and bulging, the canal is WNL, no external ttp. the Right TM and canal are WNL Neck: full range of motion Respiratory: chest non-tender, lungs clear, normal breath sounds, speaking full sentences Cardiovascular #1: regular rate, rhythm Musculoskeletal: gait/station normal, normal range of motion, non-tender Neurologic: alert, oriented x3, responsive, motor strength/tone normal, sensory intact, speech normal, grossly normal Psychiatric: judgement/insight normal Skin: no rash Lymphatic: no adenopathy Medical Decision Making PA Attestation Dr. Quintero is my supervising physician whom pt. management has been discussed with. Diagnostic Impression: Primary Impression: Otitis media Qualified Codes: H66.90 - Otitis media, unspecified, unspecified ear ER Course 29-year-old female presents to the emergency department complaining of 3 out of 10 severity pain x2 days. Patient reports she feels as though there is a lot of pressure buildup in it needs to be relieved or have liquid drained. Patient states she is attempted to clean her ears with Q-tips with no relief. Patient reports muffled hearing she states the pain is very deep she denies external ear tenderness. Patient reports chills but denies fevers. Patient denies cough , sore throat, neck pain or stiffness. Patient does report nasal congestion prior to her symptoms onset. Patient reports that she had reduction of her pain after taking Advil prior to arrival. Ddx considered but are not limited to OM, OE, mastoiditis, TM perforation, FB Vital signs: are WNL, pt. is afebrile H&PE are most consistent with otitis media- left ear. ORDERS: none required at this time, the diagnosis is clinical -OTOSCOPY: Left TM is erythematous and bulging, the canal is WNL, no external ttp. the Right TM and canal are WNL. ED INTERVENTIONS: None required at this time. DISCHARGE: At this time pt. is stable for d/c to home. With PO ABX. Will provide printed patient care instructions, and any necessary prescriptions. Care plan and follow up instructions have been discussed with the patient prior to discharge. Last Vital Signs Date Time Temp Pulse Resp B/P (MAP) Pulse Ox O2 Delivery O2 Flow Rate FiO2 09/15/19 11:36 99.0 110 18 150/91 98 Room Air Disposition: HOME, SELF-CARE Condition: Stable Scripts Ibuprofen* (MOTRIN*) 600 Mg Tablet 600 MG ORAL THREE TIMES A DAY, #30 TAB 0 Refills Prov: Tanya Mcclellan 09/15/19 Acetaminophen With Codeine (T#3) (TYLENOL #3 TAB*) Y Tab 1 TAB ORAL Q8HR PRN for For Pain, #6 TAB Prov: Tanya Mcclellan 09/15/19 Amoxicillin/Potassium Clav 875-125* (AUGMENTIN 875-125 TABLET*) 1 Each Tablet 1 TAB ORAL TWICE A DAY for 10 Days, #20 TAB Prov: Tanya Mcclellan 09/15/19 Referrals: [facility],REFERRING (PCP) Patient Instructions: Otitis Media, Adult, [id number] Additional Instructions: Take medications as directed. Follow up with a Primary Care Provider in 3-5 days, even if your symptoms have resolved. Return sooner to ED if new symptoms occur, or current symptoms become worse. Do not drink alcohol, drive, or operate heavy machinery while taking Tylenol # 3 as this may cause drowsiness. - Please note that this Emergency Department Report was dictated using [employer] fermentation operator technology software, occasionally this can lead to erroneous entry secondary to interpretation by the dictation equipment. Tanya Mcclellan Sep 15, 2019 12:42
[2019-09-15] MEDS ORDERED: AUGMENTIN 875-1 EAC1 ORAL (12:43)
[2019-09-15] MEDS ORDERED: ACETAMINOPHEN-1 EAC1 ORAL (12:44)
[2019-09-15] MEDS ORDERED: IBUPROFEN600 MG ORAL (12:44)
--- NOTE | 2019-09-15 12:50 | NUR ---
ED Nurse Note: Tanya Mcclellan/PHAN notified of HR 120. Pt is cleared for discharge.
[2019-09-15 12:58] VITALS: BP 146/90
--- NOTE | 2019-09-15 12:58 | NUR ---
ER DISCHARGE NOTE: Patient is cleared to be discharged per PA, pt is aox4, on room air, with stable vital signs. pt was given dc and prescription instructions, pt was able to verbalize understanding, pt id band removed. pt is able to ambulate with steady gait. pt took all belongings.
== END 2019-09-15 12:58 | disposition home or self-care (01) ==
LOC: EMR 12:25
DX: H66.90 Otitis media, unspecified, unspecified ear (principal); I10 Essential (primary) hypertension
CPT/HCPCS: 99282